=== PATIENT | female | born 1935 | race Caucasian/White ===

== ENCOUNTER 2019-03-02 11:09 | Inpatient (IN) | payer MEDICARE, BC ==
[2019-03-02] MEDS ORDERED: Ondansetron 4 MG/2 ML SDV IVPUSH PRN (14:51)
[2019-03-02] MEDS ORDERED: CIMETIDINE PO PRN (15:04)
--- NOTE | 2019-03-02 15:12 | PCM.HP ---
H&P History of Present Illness - General Date of Service: 03/02/19 Admit Problem/Dx: Admission Diagnosis/Problem Admission Diagnosis/Problem Debility - History of Present Illness Initial Comments - Free Text/Narative: Ms. Berger is an 83 year old female with past medical history significant for GERD, glaucoma, depression, osteoarthritis who was admitted to [facility] for an elective TKA for right knee osteoarthritis s/p TKA on 02/27/19. patient postoperative course was unremarkable, and she was transferred here for swing bed. patient reported some knee pain, and that her knee feels warm. She denied any other complaints. Right Knee Pain Score (Numeric/FACES): 6 - Related Data Allergies/Adverse Reactions: Allergies Allergy/AdvReac Type Severity Reaction Status Date / Time No Known Allergies Allergy Verified 03/02/19 12:15 Home Medications: Home Meds Sertraline [Zoloft] 50 mg PO DAILY 05/31/14 [History] Acetaminophen [Tylenol] 650 mg PO Q4HR PRN 03/02/19 [History] Aspirin [Aspirin EC] 325 mg PO BID 03/02/19 [History] Cimetidine [Tagamet Hb] 1 tab PO DAILY PRN 03/02/19 [History] Latanoprost 1 drop EYERT BEDTIME 03/02/19 [History] Timolol Maleate 1 drop EYERT BID 03/02/19 [History] oxyCODONE HCl [Roxicodone] 5 mg PO Q8H PRN 03/02/19 [History] Past Medical History HEENT History: Reports: Cataract, Glaucoma, Impaired Vision Other HEENT History: right eye-similar to glaucoma Gastrointestinal History: Reports: GERD Genitourinary History: Reports: UTI, Recurrent RN URGENT CARE History: Reports: , Other (See Below) Other OB/BYN History: partial hysterectomy and right breast removed Musculoskeletal History: Reports: Arthritis, Back Pain, Chronic, Neck Pain, Chronic Psychiatric History: Reports: Depression Endocrine/Metabolic History: Reports: Diabetes, Type II Other Endocrine/Metabolic History: diet controlled Oncologic (Cancer) History: Reports: Breast - Infectious Disease History Infectious Disease History: Reports: Chicken Pox, Measles, Mumps - Past Surgical History HEENT Surgical History: Reports: Cataract Surgery Other HEENT Surgeries/Procedures: both eyes GI Surgical History: Reports: Appendectomy Female Surgical History: Reports: None, Mastectomy Other Female Surgeries/Procedures: right breast removed Endocrine Surgical History: Reports: None Musculoskeletal Surgical History: Reports: Knee Replacement Other Musculoskeletal Surgeries/Procedures:: right knee replacement Oncologic Surgical History: Reports: Mastectomy Other Oncologic Surgeries/Procedures: right breast Social & Family History - Family History Family Medical History: Noncontributory - Tobacco Use Smoking Status *Q: Former Smoker Packs/Tins Daily: 0.5 Used Tobacco, but Quit: Yes Month/Year Tobacco Last Used: 1983 - Caffeine Use Caffeine Use: Reports: Coffee, Soda - Recreational Drug Use Recreational Drug Use: No H&P Review of Systems - Review of Systems: Review Of Systems: ROS reveals no pertinent complaints other than HPI. Exam - Exam Exam: See Below - Vital Signs Vital Signs: Last Vital Signs Temp 37.4 C 03/02/19 14:51 Pulse 64 03/02/19 14:51 Resp 18 03/02/19 14:51 BP 115/61 03/02/19 14:51 Pulse Ox 99 03/02/19 14:51 Weight: 90.083 kg - Exam General: Alert, Oriented, 4 HEENT: Conjunctiva Clear Lungs: Clear to Auscultation, Normal Respiratory Effort Cardiovascular: Regular Rate, Regular Rhythm GI/Abdominal Exam: Normal Bowel Sounds, Soft, Non-Tender Extremities: Other (right knee TKA, some bruising on the medial side, warm to touch) Skin: Warm, Dry, Intact Neuro Extensive - Mental Status: Alert, Oriented x3 Psychiatric: Alert, Normal Affect, Normal Mood - Patient Data Result Diagrams: 03/02/19 15:13 Problem List Initiated/Reviewed/Updated: Yes Orders Last 24hrs: Active Orders 24 hr Category Date Time Status Patient Status [ADT] Routine ADT 03/02/19 14:51 Ordered Oxygen Therapy [RC] PRN Care 03/02/19 14:51 Ordered Up With Assistance [RC] ASDIRECTED Care 03/02/19 14:51 Ordered Vital Signs [RC] QSHIFT Care 03/02/19 14:51 Ordered OT Evaluation and Treatment [CONS] Routine Cons 03/02/19 14:51 Ordered PT Evaluation and Treatment [CONS] Routine Cons 03/02/19 14:51 Ordered Regular Diet [DIET] Diet 03/02/19 Dinner Ordered CBC WITH AUTO DIFF [HEME] Routine Lab 03/02/19 14:51 Ordered COMPREHENSIVE METABOLIC PN,CMP [CHEM] Routine Lab 03/02/19 14:51 Ordered MAGNESIUM [CHEM] Routine Lab 03/02/19 14:51 Ordered PHOSPHORUS [CHEM] Routine Lab 03/02/19 14:51 Ordered Acetaminophen [Tylenol] Med 03/02/19 15:04 Ordered 650 mg PO Q4HR PRN Aspirin [Ecotrin] Med 03/02/19 21:00 Ordered 325 mg PO BID Cimetidine [Tagamet Hb] Med 03/02/19 15:04 Ordered 1 tab PO DAILY PRN Heparin Sodium Med 03/02/19 22:00 Ordered 5,000 units SUBCUT Q8HR Latanoprost [Xalatan 0.005% Ophth Soln] Med 03/02/19 21:00 Ordered 1 drop EYERT BEDTIME Ondansetron [Zofran] Med 03/02/19 14:51 Ordered 4 mg IVPUSH Q6H PRN Sertraline [Zoloft] Med 03/02/19 15:15 Ordered 50 mg PO DAILY Timolol Maleate [Timoptic 0.5% Ophth Soln] Med 03/02/19 21:00 Ordered 1 drop EYERT BID oxyCODONE Med 03/02/19 15:04 Ordered 5 mg PO Q8H PRN Resuscitation Status Routine Resus Stat 03/02/19 14:51 Ordered Medication Orders Heparin Sodium (Porcine) (Heparin Sodium) 5,000 units SUBCUT Q8HR KJ Ondansetron HCl (Zofran) 4 mg IVPUSH Q6H PRN PRN Reason: Nausea/Vomiting Assessment/Plan Comment:: s/p TKA continue patient on oxycodone PT/OT GERD Continue home H2 mana Glaucoma continue eyedrops Depression continue Zoloft DVT prophylaxis heparin sc
[2019-03-02] MEDS: oxyCODONE 5 MG Tab PO PRN ×2 (15:18→23:20)
[2019-03-02 16:04] LABS: ANION GAP 16.1
[2019-03-02] MEDS: Acetaminophen 325 MG Tab PO PRN ×2 (18:34→23:19)
[2019-03-02] MEDS: Timolol Maleate 0.5% Ophth Soln 5 ML Bottle EYERT SCH ×2 (19:31→20:20)
[2019-03-02] MEDS: Latanoprost 0.005% Ophth Soln 2.5 ML Bottle EYERT SCH ×2 (19:32→20:21)
[2019-03-02] MEDS: Heparin Sodium 5,000 Units/ML Vial SUBCUT SCH (19:44)
[2019-03-02] MEDS ORDERED: Aspirin 325 MG Tab.EC PO SCH (21:00)
[2019-03-03] MEDS: Acetaminophen 325 MG Tab PO PRN ×4 (04:24→20:10)
[2019-03-03] MEDS: Heparin Sodium 5,000 Units/ML Vial SUBCUT SCH ×2 (04:29→12:36)
[2019-03-03] MEDS: Sertraline 50 MG Tab PO SCH (08:43)
[2019-03-03] MEDS: Timolol Maleate 0.5% Ophth Soln 5 ML Bottle EYERT SCH ×2 (08:44→20:11)
[2019-03-03] MEDS ORDERED: Famotidine 20 MG Tab PO SCH (12:15)
[2019-03-03] MEDS ORDERED: Calcium Carbonate 500 MG Tab.Chew PO ONE (12:30)
[2019-03-03] MEDS ORDERED: Famotidine 20 MG Tab PO PRN (16:02)
[2019-03-03] MEDS ORDERED: Calcium Carbonate 500 MG Tab.Chew PO PRN (16:05)
[2019-03-03] MEDS ORDERED: Magnesium Hydroxide 400 MG/5 ML Susp 30 ML Cup PO PRN (16:06)
[2019-03-03] MEDS ORDERED: Docusate Sodium 100 MG Cap PO PRN (16:06)
[2019-03-03] MEDS: oxyCODONE 5 MG Tab PO PRN (16:09)
[2019-03-03] MEDS: Aspirin 325 MG Tab PO SCH (20:09)
[2019-03-03] MEDS: Latanoprost 0.005% Ophth Soln 2.5 ML Bottle EYERT SCH (20:12)
[2019-03-04] MEDS: oxyCODONE 5 MG Tab PO PRN ×3 (00:31→17:51)
[2019-03-04] MEDS: Acetaminophen 325 MG Tab PO PRN ×3 (00:31→20:27)
[2019-03-04] MEDS: Timolol Maleate 0.5% Ophth Soln 5 ML Bottle EYERT SCH ×2 (10:35→20:31)
[2019-03-04] MEDS: Aspirin 325 MG Tab PO SCH ×2 (10:35→20:27)
[2019-03-04] MEDS: Sertraline 50 MG Tab PO SCH (10:35)
[2019-03-04] MEDS ORDERED: Famotidine 20 MG Tab PO PRN (20:21)
[2019-03-04] MEDS: Latanoprost 0.005% Ophth Soln 2.5 ML Bottle EYERT SCH (20:33)
[2019-03-05] MEDS: Acetaminophen 325 MG Tab PO PRN ×3 (09:14→22:00)
[2019-03-05] MEDS: oxyCODONE 5 MG Tab PO PRN ×2 (09:15→21:58)
[2019-03-05] MEDS: Aspirin 325 MG Tab PO SCH ×2 (09:15→21:58)
[2019-03-05] MEDS: Sertraline 50 MG Tab PO SCH (09:16)
[2019-03-05] MEDS: Timolol Maleate 0.5% Ophth Soln 5 ML Bottle EYERT SCH ×2 (09:21→22:01)
[2019-03-05] MEDS ORDERED: TAGAMET 200 MG PO PRN (16:30)
[2019-03-05] MEDS: Latanoprost 0.005% Ophth Soln 2.5 ML Bottle EYERT SCH (22:02)
[2019-03-06] MEDS: oxyCODONE 5 MG Tab PO PRN ×3 (05:55→22:15)
[2019-03-06] MEDS: Sertraline 50 MG Tab PO SCH (08:59)
[2019-03-06] MEDS: Aspirin 325 MG Tab PO SCH ×2 (08:59→20:40)
[2019-03-06] MEDS: Timolol Maleate 0.5% Ophth Soln 5 ML Bottle EYERT SCH ×2 (09:00→20:43)
[2019-03-06] MEDS: Acetaminophen 325 MG Tab PO PRN ×3 (10:13→22:14)
[2019-03-06] MEDS: Latanoprost 0.005% Ophth Soln 2.5 ML Bottle EYERT SCH (20:42)
[2019-03-07] MEDS: Acetaminophen 325 MG Tab PO PRN ×3 (05:11→20:56)
[2019-03-07] MEDS: oxyCODONE 5 MG Tab PO PRN ×3 (06:30→21:31)
[2019-03-07 07:08] LABS: ANION GAP 12.7; CHLORIDE,CL 104 mmol/L (101-111); SODIUM,NA 138 mmol/L (135-145)
[2019-03-07] MEDS: Aspirin 325 MG Tab PO SCH ×2 (09:21→20:56)
[2019-03-07] MEDS: Sertraline 50 MG Tab PO SCH (09:21)
[2019-03-07] MEDS: Timolol Maleate 0.5% Ophth Soln 5 ML Bottle EYERT SCH ×2 (09:22→20:56)
[2019-03-07] MEDS: Latanoprost 0.005% Ophth Soln 2.5 ML Bottle EYERT SCH (20:56)
[2019-03-08] MEDS: Acetaminophen 325 MG Tab PO PRN ×5 (03:13→21:56)
[2019-03-08] MEDS: oxyCODONE 5 MG Tab PO PRN ×3 (06:05→21:57)
[2019-03-08] MEDS: Aspirin 325 MG Tab PO SCH ×2 (09:26→21:08)
[2019-03-08] MEDS: Sertraline 50 MG Tab PO SCH (09:26)
[2019-03-08] MEDS: Timolol Maleate 0.5% Ophth Soln 5 ML Bottle EYERT SCH ×2 (09:27→21:09)
[2019-03-08] MEDS: Latanoprost 0.005% Ophth Soln 2.5 ML Bottle EYERT SCH (21:10)
[2019-03-09] MEDS: Acetaminophen 325 MG Tab PO PRN ×4 (03:27→21:03)
[2019-03-09] MEDS: oxyCODONE 5 MG Tab PO PRN ×2 (05:53→20:11)
[2019-03-09 06:38] LABS: ANION GAP 14.1; CHLORIDE,CL 104 mmol/L (101-111); SODIUM,NA 140 mmol/L (135-145)
[2019-03-09] MEDS: Sertraline 50 MG Tab PO SCH (09:03)
[2019-03-09] MEDS: Aspirin 325 MG Tab PO SCH ×2 (09:03→20:11)
[2019-03-09] MEDS: Timolol Maleate 0.5% Ophth Soln 5 ML Bottle EYERT SCH ×2 (09:04→20:13)
--- NOTE | 2019-03-09 12:25 | PCM.PN ---
- General Info Date of Service: 03/09/19 Subjective Update: Feeling well Making progress with physical therapy Has moderate right knee pain, worse with activity, associated with no redness. Noted low-grade temperature in the past few days No unusual cough, no urinary burning. No rash. - Patient Data Vitals - Most Recent: Last Vital Signs Temp 36.2 C 03/09/19 08:17 Pulse 61 03/09/19 08:17 Resp 20 03/09/19 08:17 BP 129/59 L 03/09/19 08:17 Pulse Ox 99 03/09/19 08:17 Weight - Most Recent: 90.083 kg I&O - Last 24 Hours: Intake & Output 03/08/19 03/09/19 03/09/19 22:59 06:59 14:59 Intake Total 790 200 200 Balance 790 200 200 Lab Results Last 24 Hours: Laboratory Results - last 24 hr 03/09/19 03/09/19 Range/Units 05:50 05:50 WBC 7.2 (5.0-10.0) 10^3/uL RBC 3.14 L (4.2-5.4) 10^6/uL Hgb 10.3 L (12.0-16.0) g/dL Hct 32.1 L (37.0-47.0) % MCV 102.2 H (80-100) fL MCH 32.8 (27.0-34.0) pg MCHC 32.1 L (33.0-35.0) g/dL Plt Count 307 (150-450) 10^3/uL Neut % (Auto) 55.7 (42.2-75.2) % Lymph % (Auto) 33.1 (20.5-50.1) % [place] % (Auto) 9.5 H (2-8) % Eos % (Auto) 1.4 (1.0-3.0) % Baso % (Auto) 0.3 (0.0-1.0) % Sodium 140 (135-145) mmol/L Potassium 4.1 (3.6-5.0) mmol/L Chloride 104 (101-111) mmol/L Carbon Dioxide 26.0 (21.0-31.0) mmol/L Anion Gap 14.1 BUN 14 (7-18) mg/dL Creatinine 0.9 (0.6-1.3) mg/dL Est Cr Clr Drug Dosing 42.33 mL/min Estimated GFR (MDRD) > 60 Glucose 132 H (74-105) mg/dL Calcium 8.8 (8.4-10.2) mg/dl Med Orders - Current: Current Medications Acetaminophen (Tylenol) 650 mg PO Q4HR PRN PRN Reason: Pain (mild 1-3) Last Admin: 03/09/19 12:04 Dose: 650 mg Aspirin (Aspirin) 325 mg PO BID [facility] Last Admin: 03/09/19 09:03 Dose: 325 mg Calcium Carbonate/Glycine (Tums) 500 mg PO Q2H PRN PRN Reason: Indigestion Docusate Sodium (Colace) 100 mg PO DAILY PRN PRN Reason: Constipation Latanoprost (Xalatan 0.005% Ophth Soln) 0 ml EYERT BEDTIME [facility] Last Admin: 03/08/19 21:10 Dose: 1 drop Magnesium Hydroxide (Milk Of Magnesia) 30 ml PO DAILY PRN PRN Reason: Constipation Ondansetron HCl (Zofran) 4 mg IVPUSH Q6HR PRN PRN Reason: Nausea/Vomiting Oxycodone HCl (Oxycodone) 5 mg PO Q8H PRN PRN Reason: Pain (moderate 4-6) Last Admin: 03/09/19 05:53 Dose: 5 mg Tagamet 200mg Tab * (*Own Med) 0 each PO DAILY PRN PRN Reason: heartburn Sertraline HCl (Zoloft) 50 mg PO DAILY [facility] Last Admin: 03/09/19 09:03 Dose: 50 mg Timolol Maleate (Timoptic 0.5% Ophth Soln) 0 ml EYERT BID [facility] Last Admin: 03/09/19 09:04 Dose: 1 drop Discontinued Medications Aspirin (Ecotrin) 325 mg PO BID [facility] Calcium Carbonate/Glycine (Tums) 500 mg PO ONETIME ONE Stop: 03/03/19 12:31 Last Admin: 03/03/19 12:34 Dose: Not Given Famotidine (Pepcid) 20 mg PO DAILY [facility] Last Admin: 03/03/19 12:35 Dose: Not Given Famotidine (Pepcid) 20 mg PO DAILY PRN PRN Reason: Heartburn Heparin Sodium (Porcine) (Heparin Sodium) 5,000 units SUBCUT Q8H [facility] Last Admin: 03/03/19 12:36 Dose: Not Given Non-Formulary Medication (Cimetidine [Tagamet Hb]) 1 tab PO DAILY PRN PRN Reason: Heartburn - Exam General: Alert, Oriented Lungs: Clear to Auscultation, Normal Respiratory Effort Cardiovascular: Regular Rate, Regular Rhythm GI/Abdominal Exam: Normal Bowel Sounds, Soft, Non-Tender Extremities: No Pedal Edema, Other (Right knee dressing) - Problem List & Annotations (1) Knee pain SNOMED Code(s): 83109146 Code(s): M25.569 - PAIN IN UNSPECIFIED KNEE Status: Acute Current Visit: Yes - Problem List Review Problem List Initiated/Reviewed/Updated: Yes - Plan Plan:: s/p TKA continue patient on oxycodone Continue with PT/OT Monitor low-grade temperatures GERD Continue home H2 mana Glaucoma continue eyedrops Depression continue Zoloft DVT prophylaxis heparin sc
[2019-03-09] MEDS: Latanoprost 0.005% Ophth Soln 2.5 ML Bottle EYERT SCH (20:13)
[2019-03-10] MEDS: Acetaminophen 325 MG Tab PO PRN ×3 (03:50→20:12)
[2019-03-10] MEDS: oxyCODONE 5 MG Tab PO PRN ×2 (06:43→20:13)
[2019-03-10] MEDS: Aspirin 325 MG Tab PO SCH ×2 (09:06→20:12)
[2019-03-10] MEDS: Sertraline 50 MG Tab PO SCH (09:06)
[2019-03-10] MEDS: Timolol Maleate 0.5% Ophth Soln 5 ML Bottle EYERT SCH ×2 (09:07→20:12)
[2019-03-10] MEDS: Latanoprost 0.005% Ophth Soln 2.5 ML Bottle EYERT SCH (20:12)
[2019-03-11] MEDS: Sertraline 50 MG Tab PO SCH (09:04)
[2019-03-11] MEDS: Aspirin 325 MG Tab PO SCH (09:04)
[2019-03-11] MEDS: Timolol Maleate 0.5% Ophth Soln 5 ML Bottle EYERT SCH (09:05)
[2019-03-11] MEDS: oxyCODONE 5 MG Tab PO PRN (09:13)
[2019-03-11 09:35] VITALS: BP 133/53
--- NOTE | 2019-03-13 18:20 | DISCH ---
DISCHARGE DIAGNOSES: 1. Status post total right knee arthroplasty, 02/27/2019. 2. Osteoarthritis by history. 3. Glaucoma by history. 4. Depression by history. HISTORY OF PRESENT ILLNESS: Verito Begrer is an 83-year-old female, who underwent a total right knee arthroplasty in [place] on 02/27/2019. Replacement was due to degenerative osteoarthritis of the knee. She was admitted to swing bed postoperatively to work with Physical and Occupational Therapy for recovery and she now feels ready to go home and continue therapy on an outpatient basis. PERTINENT LABS AND X-RAYS: CBCs were followed during the admission. Hemoglobin and hematocrit were stable at 10.6 and 32 throughout the course. White count and platelets were within normal limits. Electrolytes were normal. BUN and creatinine were 14 and 0.9 at the time of discharge with GFR of more than 60. This was improved from admission when BUN and creatinine were 20 and 1.0 with GFR of 53. Blood sugars were monitored throughout the stay and were acceptable. LFTs were unremarkable. No imaging studies were performed during this admission. HOSPITAL COURSE: Review of her clinical data shows she was taking adequate fluids. She was voiding and moving her bowels. She was tolerating 100% of her meals. Vital signs were stable and she remained afebrile throughout the stay. She worked on a daily basis with Physical and Occupational Therapy. PHYSICAL EXAMINATION: General: She is seated comfortably in her recliner. She is wearing the cool pack around her knee. She voices no concerns or complaints. She said that she is feeling better. She feels ready to be discharged to home. She denied any chest pain or shortness of breath. No calf pain. No other symptoms of concern. Vital Signs: Blood pressure 133/53, pulse 74, respiratory rate 18, oxygen saturation 99% on room air. She is afebrile. Weight 198 pounds 9.6 ounces. Height 5 feet 4 inches. HEENT: Unremarkable, within normal limits. Chest: Showed clear, but diminished bilateral breath sounds. Heart: Showed regular rate and rhythm. Abdomen: Obese and benign. Extremities: Showed the calves to be soft and nontender. She had compression stockings in place on the right leg and the cool pack was in place around the knee. IMPRESSION: An 83-year-old female status post total right knee arthroplasty. She is now ready for discharge to home. She will continue her usual home medicines. She will follow up with outpatient physical therapy at the hospital in [place]. She has followup scheduled with orthopedist, Dr. Mike Jay, on 03/16/2019, at 10 a.m. at the [facility] in [place]. DISCHARGE MEDICATIONS: Tylenol 650 mg every 4 hours p.r.n., oxycodone 5 mg every 8 hours p.r.n. for pain, cimetidine 1 tablet daily, aspirin EC 325 mg twice a day for a month, latanoprost 1 drop in the right eye at bedtime, timolol 1 drop in the right eye b.i.d., and sertraline 50 mg daily. ALLERGIES: No known allergies. CODE STATUS: During this admission was full code. CONDITION AT THE TIME OF DISCHARGE: Improved and stable. [facility] /[id number]
== END 2019-03-11 15:15 | disposition home or self-care (01) | DRG 561 ==
LOC: DL.MS 13:33 → UNDOADMIN 13:33 → DL.MS 13:40 → UNDOADMIN 14:51 → DL.MS 14:51
PROVIDERS: ADMIT Internal Medicine; ATTEND Internal Medicine
DX: Z47.1 Aftercare following joint replacement surgery (principal); K21.9 Gastro-esophageal reflux disease without esophagitis; F32.9 Major depressive disorder, single episode, unspecified; M19.90 Unspecified osteoarthritis, unspecified site; H40.9 Unspecified glaucoma; Z96.651 Presence of right artificial knee joint; H54.7 Unspecified visual loss; G89.29 Other chronic pain; M54.9 Dorsalgia, unspecified; M54.2 Cervicalgia; E11.9 Type 2 diabetes mellitus without complications; Z79.82 Long term (current) use of aspirin; Z98.42 Cataract extraction status, left eye; Z98.41 Cataract extraction status, right eye; Z87.891 Personal history of nicotine dependence; Z87.440 Personal history of urinary (tract) infections; Z90.710 Acquired absence of both cervix and uterus; Z90.11 Acquired absence of right breast and nipple; Z90.49 Acquired absence of other specified parts of digestive tract
CPT/HCPCS: 36415; 80048; 80053; 83735; 84100; 85025; 97110-GO; 97110-GP; 97116-GP; 97162-GP; 97165-GO; 97530-GO; A9270-GY; J1644

== ENCOUNTER 2020-10-19 22:17 | Emergency (ER) | payer MEDICARE, BC ==
[2020-10-19 22:47] VITALS: BP 194/112; PULSE 82
[2020-10-19 23:06] LABS: ANION GAP 18.8 mEq/L (7-13); CHLORIDE,CL 98 mmol/L (98-107); SODIUM,NA 137 mmol/L (136-145)
--- NOTE | 2020-10-19 23:20 | EDM.PDOC ---
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 Blacked out hit face on something unsure what, Admits ETOH, couple Juan J and Luis F's tonight with friends then a couple shots. Admits daily ETOH ingestion, Sone reports likely more than a couple shots per day. No reported change in behavior or confusion tonight. Reported some more forgetfulness in past few months. Lives alone. Able to call daughter who notified son. no numbness or tingling. C/o neck pain, chronic and pain between shoulder blades. Patient reports fall last week at ground level with no injury. Did not report to son. Earlier report to RN that slipped while sitting down to recliner. Not blood thinners. Previous record noted Baby ASA states does not take anymore. Son thought possible she may have laid on floor up to 2 hours prior to calling daughter. Right Face/Facial Pain Score (Numeric/FACES): 8 - Related Data Allergies Allergy/AdvReac Type Severity Reaction Status Date / Time No Known Allergies Allergy Verified 10/19/20 22:22 Home Meds: Home Meds Sertraline [Zoloft] 50 mg PO DAILY 05/31/14 [History] Acetaminophen [Tylenol] 650 mg PO Q4HR PRN 03/02/19 [History] Cimetidine [Tagamet Hb] 1 tab PO DAILY PRN 03/02/19 [History] Latanoprost 1 drop EYERT BEDTIME 03/02/19 [History] Timolol Maleate 1 drop EYERT BID 03/02/19 [History] Past Medical History HEENT History: Reports: Cataract, Glaucoma, Impaired Vision Other HEENT History: right eye-similar to glaucoma Gastrointestinal History: Reports: GERD Genitourinary History: Reports: UTI, Recurrent 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: , Other (See Below) 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 LIGHTER REPAIRER History: partial hysterectomy and right breast removed Musculoskeletal History: Reports: Arthritis, Back Pain, Chronic, Neck Pain, Chronic Psychiatric History: Reports: Depression Endocrine/Metabolic History: Reports: Diabetes, Type II Other Endocrine/Metabolic History: diet controlled Oncologic (Cancer) History: Reports: Breast - Infectious Disease History Infectious Disease History: Reports: Chicken Pox, Measles, Mumps - Past Surgical History HEENT Surgical History: Reports: Cataract Surgery Other HEENT Surgeries/Procedures: both eyes GI Surgical History: Reports: Appendectomy Female Surgical History: Reports: Mastectomy Other Female Surgeries/Procedures: right breast removed Endocrine Surgical History: Reports: None Musculoskeletal Surgical History: Reports: Knee Replacement Other Musculoskeletal Surgeries/Procedures:: right knee replacement Oncologic Surgical History: Reports: Mastectomy Other Oncologic Surgeries/Procedures: right breast Social & Family History - Family History Family Medical History: No Pertinent Family History - Tobacco Use Tobacco Use Status *Q: Unknown Ever Used Tobacco - Caffeine Use Caffeine Use: Reports: Soda - Alcohol Use Days Per Week of Alcohol Use: 7 Number of Drinks Per Day: 4 Total Drinks Per Week: 28 Date of Last Drink: 10/19/20 Time of Last Drink: 21:00 - Recreational Drug Use Recreational Drug Use: No ED ROS GENERAL - Review of Systems Review Of Systems: Comprehensive ROS is negative, except as noted in HPI. ED EXAM, HEAD INJURY - Physical Exam Exam: See Below Exam Limited By: No Limitations General Appearance: Alert, Mild Distress Head: Facial Swelling Nexus Criteria: Posterior, Midline Cervical Tenderness, Evidence of Intoxication, Painful Distraction Injuries. No: Altered Level of Consciousness Eyes: Right Eye: Other (periorbital swelling), Bilateral Eye: EOMI, PERRL Ears: Normal External Exam, Normal Canal, Hearing Grossly Normal Nose: Normal Inspection Throat/Mouth: Normal Inspection, Normal Gums. No: Normal Voice (muffled) Neck: Spinous Processes Tender, Tender Lateral, Tender Midline, Other (muffled respiration when flat for CT, slight difficullty with swallowing secretions). No: Non-Tender Respiratory: Lungs Clear Cardiovascular: Normal Peripheral Pulses, Regular Rate, Rhythm GI/Abdominal Exam: Normal Bowel Sounds, Soft Extremities: Normal Range of Motion, Normal Capillary Refill, Other (tender upper thoracic between shoulder blades) Neurologic: No Motor/Sensory Deficits, Alert, Normal Mood/Affect, Oriented x 3, Other (faint odor ETOH) Skin: Ecchymosis (right facial bruising , periorbital swelling right) Course - Vital Signs Last Recorded V/S: Last Vital Signs Temp 97.3 F 10/19/20 22:45 Pulse 82 10/19/20 22:45 Resp 18 10/19/20 22:45 BP 194/112 H 10/19/20 22:45 Pulse Ox 96 10/19/20 22:45 - Orders/Labs/Meds Labs: Laboratory Tests 10/19/20 10/19/20 10/19/20 Range/Units 22:32 22:36 22:36 WBC 14.9 H (5.0-10.0) 10^3/uL RBC 4.31 (4.2-5.4) 10^6/uL Hgb 14.7 D (12.0-16.0) g/dL Hct 42.5 (37.0-47.0) % MCV 98.6 D (80-100) fL MCH 34.1 H (27.0-34.0) pg MCHC 34.6 (33.0-35.0) g/dL Plt Count 227 D (150-450) 10^3/uL Neut % (Auto) 79.0 H (42.2-75.2) % Lymph % (Auto) 14.7 L (20.5-50.1) % [place] % (Auto) 6.0 (2-8) % Eos % (Auto) 0.2 L (1.0-3.0) % Baso % (Auto) 0.1 (0.0-1.0) % PT (9.0-12.0) SEC INR (0.9-1.2) D-Dimer, Quantitative (0-400) ng/mL Sodium 137 (136-145) mmol/L Potassium 3.8 (3.5-5.1) mmol/L Chloride 98 (98-107) mmol/L Carbon Dioxide 24 (21-32) mmol/L Anion Gap 18.8 H (7-13) mEq/L BUN 20 H (7-18) mg/dL Creatinine 1.10 H (0.55-1.02) mg/dL Est Cr Clr Drug Dosing 29.24 mL/min Estimated GFR (MDRD) 47 BUN/Creatinine Ratio 18.2 (No establ ref range) Glucose 250 H (74-99) mg/dL Calcium 9.0 (8.5-10.1) mg/dL Total Bilirubin 0.3 (0.2-1.0) mg/dL AST 23 (15-37) U/L ALT 21 (14-59) U/L Alkaline Phosphatase 92 (46-116) U/L Troponin I < 0.017 (0.000-0.056) ng/mL C-Reactive Protein < 0.2 (0.0-0.9) mg/dL B-Natriuretic Peptide 55 (0-100) pg/ml Total Protein 7.8 (6.4-8.2) g/dL Albumin 4.2 (3.4-5.0) g/dL Globulin 3.6 Albumin/Globulin Ratio 1.2 Ethyl Alcohol (0) mg/dL SARS-CoV-2 RNA (ANABELL) Negative (NEGATIVE) 10/19/20 10/19/20 Range/Units 22:36 22:36 WBC (5.0-10.0) 10^3/uL RBC (4.2-5.4) 10^6/uL Hgb (12.0-16.0) g/dL Hct (37.0-47.0) % MCV (80-100) fL MCH (27.0-34.0) pg MCHC (33.0-35.0) g/dL Plt Count (150-450) 10^3/uL Neut % (Auto) (42.2-75.2) % Lymph % (Auto) (20.5-50.1) % [place] % (Auto) (2-8) % Eos % (Auto) (1.0-3.0) % Baso % (Auto) (0.0-1.0) % PT 10.2 (9.0-12.0) SEC INR 1.1 (0.9-1.2) D-Dimer, Quantitative > 5000 H (0-400) ng/mL Sodium (136-145) mmol/L Potassium (3.5-5.1) mmol/L Chloride (98-107) mmol/L Carbon Dioxide (21-32) mmol/L Anion Gap (7-13) mEq/L BUN (7-18) mg/dL Creatinine (0.55-1.02) mg/dL Est Cr Clr Drug Dosing mL/min Estimated GFR (MDRD) BUN/Creatinine Ratio (No establ ref range) Glucose (74-99) mg/dL Calcium (8.5-10.1) mg/dL Total Bilirubin (0.2-1.0) mg/dL AST (15-37) U/L ALT (14-59) U/L Alkaline Phosphatase (46-116) U/L Troponin I (0.000-0.056) ng/mL C-Reactive Protein (0.0-0.9) mg/dL B-Natriuretic Peptide (0-100) pg/ml Total Protein (6.4-8.2) g/dL Albumin (3.4-5.0) g/dL Globulin Albumin/Globulin Ratio Ethyl Alcohol 107 (0) mg/dL SARS-CoV-2 RNA (ANABELL) (NEGATIVE) - Re-Assessments/Exams Free Text/Narrative Re-Assessment/Exam: 10/20/20 02:58 Son Clement here with patient. Informed concerns/ results of CT. MISTY Thomas. Accept for tx Tx via [facility] further eval C4 fracture. Departure - Departure Time of Disposition: 00:10 Disposition: DC/Tfer to Acute Hospital 02 Condition: Undetermined Clinical Impression: Intoxication Fall at home Qualifiers: Encounter type: initial encounter Qualified Code(s): W19.XXXA - Unspecified fall, initial encounter; Y92.009 - Unspecified place in unspecified non-[facility] (private[facility] residence as the place of occurrence of the external cause Facial contusion Qualifiers: Encounter type: initial encounter Qualified Code(s): S00.83XA - Contusion of other part of head, initial encounter Cervical spine fracture Qualifiers: Encounter type: initial encounter Cervical vertebra fracture level: C4 Fracture type: closed Fracture morphology: unspecified fracture morphology Fracture alignment: nondisplaced Qualified Code(s): S12.301A - Unspecified nondisplaced fracture of fourth cervical vertebra, initial encounter for closed fracture - Discharge Information Referrals: PCP,None [Primary Care Provider] - Forms: ED Department Discharge Sepsis Event Note (ED) - Evaluation Sepsis Screening Result: No Definite Risk - Focused Exam Vital Signs: Vital Signs Temp Pulse Resp BP Pulse Ox 10/19/20 22:45 97.3 F 82 18 194/112 H 96
--- NOTE | 2020-10-19 23:31 | CT ---
PROCEDURE INFORMATION: Exam: CT Chest Without Contrast; Diagnostic Exam date and time: 10/19/2020 10:39 PM Age: 85 years old Clinical indication: Other: Syncope, fall facial bruising, ETOH tonight, ne TECHNIQUE: Imaging protocol: Diagnostic computed tomography of the chest without contrast. Radiation optimization: All CT scans at this facility use at least one of these dose optimization techniques: automated exposure control; mA and/or kV adjustment per patient size (includes targeted exams where dose is matched to clinical indication); or iterative reconstruction. COMPARISON: No relevant prior studies available. FINDINGS: Lungs: The a tiny patchy ground-glass opacity seen in the left upper lobe anteriorly and within the right upper lobe laterally likely representing atelectasis. A subtle patchy pneumonitis cannot be entirely excluded. Pleural space: Unremarkable. No pneumothorax. No pleural effusion. Heart: Unremarkable. No cardiomegaly. No pericardial effusion. Aorta: Unremarkable. No aortic aneurysm. Lymph nodes: Unremarkable. No enlarged lymph nodes. Bones/joints: There is evidence of healed rib fractures anteriorly bilaterally. Soft tissues: Unremarkable. IMPRESSION: Tiny patchy ground-glass opacities in the upper lobes bilaterally likely represents atelectasis or parenchymal scarring although a subtle patchy pneumonitis cannot be excluded.
--- NOTE | 2020-10-19 23:34 | CT ---
PROCEDURE INFORMATION: Exam: CT Maxillofacial Without Contrast Exam date and time: 10/19/2020 10:39 PM Age: 85 years old Clinical indication: Other: Syncope, fall facial bruising, ETOH tonight, ne TECHNIQUE: Imaging protocol: Computed tomography images of the face without contrast. Radiation optimization: All CT scans at this facility use at least one of these dose optimization techniques: automated exposure control; mA and/or kV adjustment per patient size (includes targeted exams where dose is matched to clinical indication); or iterative reconstruction. COMPARISON: No relevant prior studies available. FINDINGS: Limitations: Study is limited by motion artifact. Orbital cavity: There have been bilateral intraocular lens replacements. Bones/joints: No acute fracture. Paranasal sinuses: There is mild mucosal thickening of the maxillary sinuses. Remainder of the paranasal sinuses are clear. Soft tissues: Question of mild right periorbital soft tissue swelling. No other acute soft tissue findings are appreciated. IMPRESSION: 1. Negative for acute skeletal pathology. 2. Question of mild right periorbital soft tissue swelling.
--- NOTE | 2020-10-19 23:37 | CT ---
PROCEDURE INFORMATION: Exam: CT Head Without Contrast Exam date and time: 10/19/2020 10:39 PM Age: 85 years old Clinical indication: Other: Syncope, fall facial bruising, ETOH tonight, ne TECHNIQUE: Imaging protocol: Computed tomography of the head without contrast. Radiation optimization: All CT scans at this facility use at least one of these dose optimization techniques: automated exposure control; mA and/or kV adjustment per patient size (includes targeted exams where dose is matched to clinical indication); or iterative reconstruction. COMPARISON: No relevant prior studies available. FINDINGS: Brain: Age related brain involution is present. No acute intracranial hemorrhage, mass effect, midline shift, or brain herniation. Diffuse subcortical and periventricular white matter hypodensities are most in favor with chronic small vessel disease. Cerebral ventricles: There is ex vacuo ventriculomegaly. Bones/joints: Unremarkable. No acute fracture. Paranasal sinuses: Visualized sinuses are unremarkable. No fluid levels. Mastoid air cells: Visualized mastoid air cells are well aerated. Vasculature: Intracranial atherosclerosis is present. Soft tissues: Mild right periorbital soft tissue swelling is suggested. No other acute soft tissue findings are seen. IMPRESSION: 1. Negative for acute intracranial pathology. 2. Mild suggested right periorbital soft tissue swelling.
--- NOTE | 2020-10-19 23:45 | CT ---
PROCEDURE INFORMATION: Exam: CT Cervical Spine Without Contrast Exam date and time: 10/19/2020 10:39 PM Age: 85 years old Clinical indication: Other: Syncope, fall facial bruising, ETOH tonight, ne TECHNIQUE: Imaging protocol: Computed tomography images of the cervical spine without contrast. Radiation optimization: All CT scans at this facility use at least one of these dose optimization techniques: automated exposure control; mA and/or kV adjustment per patient size (includes targeted exams where dose is matched to clinical indication); or iterative reconstruction. COMPARISON: No relevant prior studies available. FINDINGS/IMPRESSION: There is a large conglomerate of adjoining anterior osteophytes extending from C2 through C5, measuring up to 2.4 cm in anteroposterior dimension and causing compression upon the esophagus, as well as upon the airway. This favors severe diffuse idiopathic skeletal hyperostosis. There is discontinuity at the cortex of the anterior osteophytes at the level of C3 with a large linear lucency traversing diagonally and tracking through the vertebral body of C4, favoring a displaced linear fracture. Please note that fracture lines extend throughout both the superior and inferior endplates of C4. The cervical alignment remains nevertheless preserved. No other acutely displaced fractures are appreciated. Multilevel degenerative changes of the vertebra are present, as manifested by endplate sclerosis, and multilevel posterior disc osteophyte complexes. The spinal canal appears grossly patent. Multilevel bony neural foraminal stenosis is appreciated. There are degenerative changes at the craniocervical junction, nevertheless the craniocervical junction appears without acute skeletal pathology. There is prevertebral soft tissue swelling appreciated at the fracture site. No other acute soft tissue findings are otherwise seen. Lung apices are clear.
--- NOTE | 2020-10-19 23:51 | CT ---
PROCEDURE INFORMATION: Exam: CT Thoracic Spine Without Contrast Exam date and time: 10/19/2020 10:39 PM Age: 85 years old Clinical indication: Other: Syncope, fall facial bruising, ETOH tonight, ne TECHNIQUE: Imaging protocol: Computed tomography images of the thoracic spine without contrast. Radiation optimization: All CT scans at this facility use at least one of these dose optimization techniques: automated exposure control; mA and/or kV adjustment per patient size (includes targeted exams where dose is matched to clinical indication); or iterative reconstruction. COMPARISON: No relevant prior studies available. FINDINGS: Vertebrae: No acute skeletal pathology. Severe multilevel degenerative changes of the spine, as manifested by multilevel anterior osteophytes and multilevel decrease in intervertebral disc space. Multilevel and diffuse anterior bridging osteophytes are appreciated, compatible with diffuse idiopathic skeletal hyperostosis. Posterior elements appear intact. Discs/Spinal canal/Neural foramina: Spinal canal is patent. No significant bony neural foraminal stenosis is appreciated. Soft tissues: No acute soft tissue findings. Lungs: No acute findings in the visualized chest. Incidental ground-glass nodule in the left upper lobe measuring up to [address] Chest at 6-12 months to confirm persistence of the nodule, then CT Chest at 3 years and 5 years. (Reference: Darlene) IMPRESSION: 1. Multilevel degenerative changes and diffuse idiopathic skeletal hyperostosis without acute posttraumatic skeletal injury. 2. Incidental findings as detailed above. REFERENCES: Darlene Urrutia et al. Guidelines for Management of Incidental Pulmonary Nodules Detected on CT Images: From the [employer] Society 2017. Radiology. 2017;284(1):228-243.
== END 2020-10-20 00:10 ==
LOC: DL.ED 22:17
DX: S12.301A Unspecified nondisplaced fracture of fourth cervical vertebra, initial encounter for closed fracture (principal); S00.83XA Contusion of other part of head, initial encounter; F10.129 Alcohol abuse with intoxication, unspecified; Y90.5 Blood alcohol level of 100-119 mg/100 ml; F32.9 Major depressive disorder, single episode, unspecified; E11.9 Type 2 diabetes mellitus without complications; Z79.899 Other long term (current) drug therapy; Z20.828 Contact with and (suspected) exposure to other viral communicable diseases; W07.XXXA Fall from chair, initial encounter; Y92.009 Unspecified place in unspecified non-institutional (private) residence as the place of occurrence of the external cause
CPT/HCPCS: 36415; 70450; 70486; 71250; 72125; 72128; 80053; 80307; 83880; 84484; 85025; 85379; 85610; 86140; 93005; 99285; U0002; 93010; 99283

== ENCOUNTER 2023-03-02 12:19 | Emergency (ER) | payer MEDICARE, BC ==
[2023-03-02] MEDS ORDERED: Sodium Chloride 0.9% 10 ML Syringe FLUSH PRN (12:23)
[2023-03-02 12:48] LABS: BASOPHILS PERCENT AUTO 0.1 % (0.0-1.0); EOSINOPHILS PERCENT AUTO 1.3 % (1.0-3.0); HEMATOCRIT 37.8 % (37.0-47.0); HEMOGLOBIN 12.7 g/dL (12.0-16.0); LYMPHOCYTES PERCENT AUTO 19.6 % (20.5-50.1); MEAN CORPUSCULAR HEMOGLOBIN 32.2 pg (27.0-34.0); MEAN CORPUSCULAR HGB CONC 33.6 g/dL (33.0-35.0); MEAN CORPUSCULAR VOLUME 95.9 fL (80-100); MONOCYTES PERCENT AUTO 6.3 % (2-8); NEUTROPHILS PERCENT AUTO 72.7 % (42.2-75.2); PLATELET COUNT,PLT 205 10^3/uL (150-450); RED BLOOD CELL COUNT 3.94 10^6/uL (4.2-5.4)
[2023-03-02] MEDS ORDERED: Tranexamic Acid 1,000 MG in Sodium Chloride 0.9% 500 ML IV ONE (12:51)
[2023-03-02 12:54] VITALS: BP 162/116; PULSE 58
[2023-03-02 13:08] LABS: PROTHROMBIN TIME 9.9 SEC (9.0-12.0); PTT,PARTIAL THROMBOPLSTIN TIME 25.3 SEC (22.0-34.0)
[2023-03-02 13:12] LABS: A/G RATIO 1.1; ALANINE AMINOTRANSFERASE,ALT 17 U/L (14-59); ALBUMIN 3.5 g/dL (3.4-5.0); ALKALINE PHOSPHATASE 79 U/L (46-116); ANION GAP 11.9 mEq/L (7-13); ASPARTATE AMNIOTRANSFERASE,AST 17 U/L (15-37); BILIRUBIN TOTAL 0.4 mg/dL (0.2-1.0); BLOOD UREA NITROGEN,BUN 18 mg/dL (7-18); BUN/CREATININE RATIO 14.8 (No establ ref range); CALCIUM 8.9 mg/dL (8.5-10.1); CARBON DIOXIDE,CO2 26 mmol/L (21-32); CHLORIDE,CL 105 mmol/L (98-107); CREATININE 1.22 mg/dL (0.55-1.02); EST CRCL DRUG DOSING (CG) 26.66 mL/min; GLUCOSE RANDOM 121 mg/dL (70-99); POTASSIUM,K 3.9 mmol/L (3.5-5.1); PROTEIN TOTAL,TP 6.7 g/dL (6.4-8.2); SODIUM,NA 139 mmol/L (136-145)
[2023-03-02 13:16] LABS: ESTIMATED GFR 43 mL/min (>=60); ETHANOL BLOOD MEDICAL < 3 mg/dL (0)
[2023-03-02 13:30] LABS: APPEARANCE,URINE CLEAR (CLEAR); BILIRUBIN,URINE NEGATIVE (NEGATIVE); COLOR,URINE YELLOW (YELLOW); GLUCOSE,URINE NEGATIVE (NEGATIVE); KETONES,URINE NEGATIVE (NEGATIVE); LEUKOCYTE ESTERASE,URINE SMALL (NEGATIVE); NITRITE,URINE NEGATIVE (NEGATIVE); OCCULT BLOOD,URINE TRACE-INTACT (NEGATIVE); PH,URINE 5.5 (5.0-9.0); PROTEIN,URINE 100 (NEGATIVE); UROBILINOGEN,URINE 0.2 mg/dL (0.2-1.0)
[2023-03-02 13:31] LABS: AMPHETAMINES,URINE NEGATIVE (NEGATIVE); BARBITURATES,URINE NEGATIVE (NEGATIVE); BENZODIAZEPINE,URINE NEGATIVE (NEGATIVE); MDMA (ECSTASY), URINE NEGATIVE (NEGATIVE); METHADONE,URINE NEGATIVE (NEGATIVE); METHAMPHETAMINES,URINE NEGATIVE (NEGATIVE); OPIATES,URINE NEGATIVE (NEGATIVE); OXYCODONE,URINE NEGATIVE (NEGATIVE); PHENCYCLIDINE,URINE NEGATIVE (NEGATIVE); TCA,URINE NEGATIVE (NEGATIVE)
[2023-03-02 13:40] LABS: AMORPHOUS SEDIMENT,URINE MODERATE /HPF (NOT SEEN); BACTERIA,URINE FEW /HPF (0-FEW/HPF); EPITHELIAL CELLS,URINE FEW /HPF (NOT SEEN); FINE GRANULAR CASTS,URINE FEW /LPF (NOT SEEN); GRANULAR CASTS,URINE FEW; HYALINE CASTS,URINE FEW; MUCUS,URINE FEW /LPF (NOT SEEN); WBC,URINE 20-30 /HPF (0-5/HPF)
== END 2023-03-02 14:00 ==
LOC: DL.ED 12:19
DX: I62.9 Nontraumatic intracranial hemorrhage, unspecified (principal); G81.94 Hemiplegia, unspecified affecting left nondominant side; E11.9 Type 2 diabetes mellitus without complications; Z79.899 Other long term (current) drug therapy
CPT/HCPCS: 36415; 70450; 71045; 80053; 80305-QW; 80307; 81001; 81003; 82947; 83735; 84484; 85025; 85610; 85730; 87086; 93005; 93010; 96365; 99285; 99285-25; J3490; J7040